=== PATIENT | female | born 1935 | race Caucasian/White ===

== ENCOUNTER 2017-01-29 18:22 | Emergency (ER) | payer MEDICARE, OTHER ==
[~2017-01-29 18:22] MED LIST: ALDACTONE50 MG PO; ASPIR-LOW81 M1 PO; CALCARB 600 W-V1 TAB PO; OCUVITE TABLET1 EACH PO; PERCOCET 5MG/AP1 TA1 PO; PRAVACHOL40 MG PO; SENOKOT-S (SENN1 TA1 PO; XARELTO10 MG PO
[2017-01-29] MEDS ORDERED: [UNRECOGNIZED DRUG - OTHER] PO (18:58)
[2017-01-29] MEDS ORDERED: KEFLEX500 M4 PO (20:41)
== END 2017-01-29 20:59 ==
LOC: EDMED 18:22
DX: L03.115 Cellulitis of right lower limb (principal); I10 Essential (primary) hypertension; Z90.49 Acquired absence of other specified parts of digestive tract; Z98.890 Other specified postprocedural states; Z79.82 Long term (current) use of aspirin; Z79.899 Other long term (current) drug therapy